=== PATIENT | male | born 1980 | race Asian ===

== ENCOUNTER 2021-03-26 21:48 | Emergency (ER) | payer OTHER ==
[~2021-03-26] VITALS: Ht 167.6 cm; Wt 97.9 kg
--- NOTE | 2021-03-26 23:32 | NUR ---
PT PRESENTS TO ED WITH ABD PAIN IN LEFT LOWER QUAD. PT STATES HE WAS FLOATING THE RIVER AND PULLED HIMSELF UP MULTIPLE TIME ON THE RAFT AND FELT A PULL/TEARING FEELING IN THE LEFT LOWER ABD QUAD. PT STATES NO PAIN OR TENDERNESS WITH TOUCH TO THE SITE, JUST WITH MOVEMENT. PT IN GOWN, ON GURNEY, AND PLACED ON CONTINUOUS MONITORING.
[2021-03-26 23:34] VITALS: BP 114/58
--- NOTE | 2021-03-27 00:32 | NUR ---
Patient given discharge instructions and they have confirmed that they understand the instructions. Patient ambulatory with steady gait.
== END 2021-03-27 00:35 | disposition home or self-care (01) ==
LOC: ED 23:50
DX: S76.211A Strain of adductor muscle, fascia and tendon of right thigh, initial encounter (principal); W23.1XXA Caught, crushed, jammed, or pinched between stationary objects, initial encounter; Y93.89 Activity, other specified; Y92.89 Other specified places as the place of occurrence of the external cause; Y99.8 Other external cause status
CPT/HCPCS: 99281